=== PATIENT | female | born 1975 | race African-American/Black ===

== ENCOUNTER → 2016-09-20 | Outpatient (CLI) | payer OTHER ==
[~2016-09-20] VITALS: Ht 153.7 cm; Wt 78.5 kg
[~2016-09-20] MED LIST: AMOXICILLIN 8751 TAB PO; DOXYCYCLINE 10100 MG PO; ZYRTEC 10MG10 MG PO
[2016-09-20 14:40] VITALS: BP 116/66; PULSE 66
== END ==
LOC: LIGHT 09:08
DX: Z98.84 Bariatric surgery status (principal); Z68.33 Body mass index [BMI] 33.0-33.9, adult

== ENCOUNTER → 2016-10-18 | Outpatient (REF) | LOC: WSOH 14:41 | DX: Z02.89 Encounter for other administrative examinations (principal) ==

== ENCOUNTER → 2017-06-08 | Outpatient (CLI) | payer OTHER ==
[2017-06-08 16:27] LABS: BASO % 0.9 % (0.0-2.0); EOS # 0.1 (0.0-0.7); EOS % 1.6 % (0-4.0); GRAN # 2.5 (1.4-6.5); GRAN % 56.7 % (42.2-75.2); HEMATOCRIT 39.9 % (37.0-47.0); HEMOGLOBIN 12.8 g/dl (12.5-16.0); LYMPH # 1.5 (1.2-3.4); LYMPH % 33.7 % (20.0-51.0); MEAN CELL VOLUME 85 fl (80.0-100.0); MEAN CORPUSCULAR HEMOGLOBIN 27 pg (27.0-31.0); MEAN CORPUSCULAR HGB CONC 32 g/dl (33.0-37.0); MONO # 0.3 (0.1-0.6); MONO % 6.9 % (1.7-9.3); PLATELET COUNT 200 K/mm3 (130-400); REDCELL DISTRIBUTION WIDTH-CV 13.8 % (11.5-14.5)
[2017-06-08 16:37] LABS: BILIRUBIN,TOTAL 0.3 mg/dL (0.0-1.0); CALCIUM 8.7 mg/dL (8.4-10.2); CREATININE, serum 0.48 mg/dL (0.52-1.25); POTASSIUM 4.6 mmol/L (3.4-5.0); TOTAL PROTEIN 7.2 gm/dL (6.4-8.2)
== END ==
LOC: COL.LAB 15:25
PROVIDERS: Family Medicine
DX: D64.9 Anemia, unspecified (principal); R10.9 Unspecified abdominal pain

== ENCOUNTER 2017-06-27 07:13 | Emergency (ER) | payer OTHER ==
[~2017-06-27] VITALS: Ht 154.9 cm; Wt 85.9 kg
[2017-06-27 07:16] VITALS: BP 126/67; TEMP 97.9
[2017-06-27 08:29] VITALS: PULSE 64
== END 2017-06-27 08:30 | disposition home or self-care (01) ==
LOC: COL.ER 07:13
DX: S06.0X0A Concussion without loss of consciousness, initial encounter (principal); R40.2412 Glasgow coma scale score 13-15, at arrival to emergency department; W18.39XA Other fall on same level, initial encounter; W22.8XXA Striking against or struck by other objects, initial encounter; Y92.89 Other specified places as the place of occurrence of the external cause; Y99.0 Civilian activity done for income or pay

== ENCOUNTER → 2017-09-02 | Outpatient (CLI) | payer OTHER | LOC: COL.RAD 09:03 | DX: Z02.9 Encounter for administrative examinations, unspecified (principal); R76.11 Nonspecific reaction to tuberculin skin test without active tuberculosis ==

== ENCOUNTER → 2017-09-23 | Outpatient (CLI) | payer BC | LOC: MC.RAD 08:08 | DX: Z12.31 Encounter for screening mammogram for malignant neoplasm of breast (principal) ==

== ENCOUNTER → 2018-03-30 | Outpatient (CLI) | payer OTHER ==
[2018-03-30 19:26] LABS: ALBUMIN 4.2 gm/dL (3.5-5.0); BILIRUBIN,TOTAL 0.3 mg/dL (0.0-1.0); CALCIUM 8.7 mg/dL (8.4-10.2); CHOLESTEROL RISK RATIO 4.3; POTASSIUM 4.7 mmol/L (3.4-5.0); TOTAL PROTEIN 7.5 gm/dL (6.4-8.2)
[2018-03-30 19:53] LABS: THYROID STIMULATING HORMONE 1.79 uIU/mL (0.465-4.680)
[2018-03-30 20:06] LABS: CREATININE, serum 0.5 mg/dL (0.52-1.25)
[2018-03-31 09:25] LABS: BASO % 0.8 % (0.0-2.0); EOS # 0.1 (0.0-0.7); EOS % 1.6 % (0-4.0); GRAN # 1.9 (1.4-6.5); GRAN % 49.4 % (42.2-75.2); HEMATOCRIT 42.4 % (37.0-47.0); HEMOGLOBIN 13.2 g/dl (12.5-16.0); LYMPH # 1.5 (1.2-3.4); LYMPH % 39.1 % (20.0-51.0); MEAN CELL VOLUME 86 fl (80.0-100.0); MEAN CORPUSCULAR HEMOGLOBIN 27 pg (27.0-31.0); MEAN CORPUSCULAR HGB CONC 31 g/dl (33.0-37.0); MONO # 0.3 (0.1-0.6); MONO % 8.8 % (1.7-9.3); PLATELET COUNT 213 K/mm3 (130-400); RED BLOOD COUNT 4.96 M/mm3 (4.10-5.30); REDCELL DISTRIBUTION WIDTH-CV 14.5 % (11.5-14.5)
== END ==
LOC: ZCOL.LAB 17:03
PROVIDERS: Family Medicine
DX: Z13.220 Encounter for screening for lipoid disorders (principal); R10.9 Unspecified abdominal pain; R63.5 Abnormal weight gain

== ENCOUNTER → 2018-04-17 | Outpatient (CLI) | payer OTHER ==
[~2018-04-17] VITALS: Ht 154.9 cm; Wt 86.6 kg
[2018-04-17 15:43] VITALS: BP 134/74; PULSE 64
== END ==
LOC: LIGHT 14:20
DX: Z98.84 Bariatric surgery status (principal); Z68.33 Body mass index [BMI] 33.0-33.9, adult; Z71.3 Dietary counseling and surveillance
CPT/HCPCS: G0463

== ENCOUNTER → 2018-11-23 | Outpatient (CLI) | payer OTHER ==
[2018-11-23 23:51] LABS: FOLLICLE STIMULATING HORMONE 5.7 mIU/mL (()); LUTENIZING HORMONE 4.1 mIU/mL (())
== END ==
LOC: ZCOL.LAB 16:34
PROVIDERS: Family Medicine
DX: N95.1 Menopausal and female climacteric states (principal)

== ENCOUNTER → 2019-05-07 | Outpatient (CLI) | payer OTHER | LOC: COL.RAD 13:31 | DX: R76.11 Nonspecific reaction to tuberculin skin test without active tuberculosis (principal) ==

== ENCOUNTER → 2021-04-27 | Outpatient (CLI) | payer MEDICAID | LOC: COL.RAD 12:57 | DX: M75.111 Incomplete rotator cuff tear or rupture of right shoulder, not specified as traumatic (principal); M67.813 Other specified disorders of tendon, right shoulder | CPT/HCPCS: A9585; Q9967 ==

== ENCOUNTER 2022-05-28 07:30 | Day surgery (SDC) | payer MEDICAID ==
[~2022-05-28] VITALS: Ht 154.9 cm; Wt 91.8 kg
[2022-05-28 08:31] VITALS: BP 140/90; PULSE 82; TEMP 97.2
[2022-05-28] MEDS ORDERED: VICTOZA6 MG/ML SQ (08:33)
[2022-05-28] MEDS ORDERED: MOBIC15 MG PO (08:33)
[2022-05-28 10:00] VITALS: BP 113/78; PULSE 72; TEMP 97.1
[2022-05-28 10:15] VITALS: BP 120/81; PULSE 69
[2022-05-28 10:30] VITALS: BP 137/85; PULSE 76
--- NOTE | 2022-05-28 18:16 | NUR ---
8939 [id number] [id number] PT TO RECOVERY BAY FROM [facility]O [facility] S/P COLONOSCOPY WITH BIOPSY(S), STUPOROUS AND COOPERATIVE, ASSISTED TO CHAIR WITH 2-PERSON ASSIST. PLACED ON MONITOR , VSS ON RA. DENIES COMPLAINT. SPOUSE/RIDE HOME IN ROOM. RECEIVED REPORT AND ASSUMED CARE OF PT FROM ENDO RN. PROVIDED BEVERAGE AND SNACK AFTER MORE AWAKE, TOLERATED WELL. CONTINUES TO DENY COMPLAINT THRU OUT STAY, VSS ON RA. IN TO SPEAK WITH PT/FAMILY, DC PAPERWORK REVIEWED AND HANDED TO PT. ALL QUESTIONS/CONCERNS REVIEWED TO PT SATISFACTION. IV D/C'D WHEN A&O. TAKEN TO EXIT VIA WC, WITH ALL BELONGINGS AND PAPERWORK. STEADY GAIT TO PASSENGER SEAT OF POV, DRIVING HOME.
== END 2022-05-28 10:46 | disposition home or self-care (01) ==
LOC: SDCO 07:30
DX: R19.7 Diarrhea, unspecified (principal); E11.9 Type 2 diabetes mellitus without complications
CPT/HCPCS: J2704; J7120

== ENCOUNTER 2023-06-17 10:09 | Day surgery (SDC) | payer MEDICAID ==
[~2023-06-17] VITALS: Ht 154.9 cm; Wt 89.2 kg
[~2023-06-17 10:09] MED LIST changes: +LR 1,000 ML IV SCH; +MOBIC15 MG PO; +VICTOZA6 MG/ML SQ
[2023-06-17 11:07] VITALS: BP 139/86; PULSE 85; TEMP 97.3
[2023-06-17] MEDS ORDERED: fentaNYL 50 MCG/ML 2 ML VIAL ONE (11:26)
[2023-06-17] MEDS ORDERED: NS 10 ML IV ONE (11:27)
[2023-06-17] MEDS ORDERED: dexAMETHasone 10 MG/ML VIAL ONE (11:27)
[2023-06-17] MEDS ORDERED: Lidocaine PF 2% (20 MG/ML) 5 ML VIAL ONE (11:27)
[2023-06-17] MEDS ORDERED: Glycopyrrolate 0.2 MG/ML 1 ML VIAL ONE (11:27)
[2023-06-17] MEDS ORDERED: Ketorolac 30 MG/ML VIAL ONE (11:27)
[2023-06-17] MEDS ORDERED: Ondansetron 4 MG/2 ML VIAL ONE (11:27)
[2023-06-17] MEDS ORDERED: Rocuronium 50 MG/5 ML Multi-Dose VIAL ONE (11:30)
[2023-06-17] MEDS ORDERED: Ondansetron 4 MG/2 ML VIAL IV PRN ×2 (11:30→14:00)
[2023-06-17] MEDS ORDERED: Meperidine 50 MG/ML 1 ML VIAL IV PRN (11:30)
[2023-06-17] MEDS ORDERED: HYDROmorphone 2 MG/1 ML VIAL IV PRN (11:30)
[2023-06-17] MEDS ORDERED: Indocyanine Green 12.5 MG in Water For Injection,Sterile 2.5 ML IV SCH (11:30)
[2023-06-17] MEDS ORDERED: Morphine 4 MG/ML VIAL IV PRN (11:30)
[2023-06-17] MEDS ORDERED: LR 1,000 ML IV ONE (13:13)
[2023-06-17] MEDS ORDERED: NORCO 325 MG-51 TAB PO (13:48)
[2023-06-17 14:40] VITALS: BP 129/74; PULSE 72; TEMP 97.5
--- NOTE | 2023-06-17 14:40 | NUR ---
The patient arrived back to [facility] from the recovery room at this time. The patient appears alert and oriented and reports minimal pain at her incision sites at this time. The patient has 4 bandaids to her abdomen that appear clean, dry and intact. The patient's post operative vital signs were started at this time. The patient's is at her bedside. The patient agrees to try some vailla pudding and diet soda at this time. Call light is within reach. Denies any further needs.
[2023-06-17 14:55] VITALS: BP 120/73; PULSE 75
--- NOTE | 2023-06-17 14:55 | NUR ---
The patient finished her pudding and appeared to tolerate it well. The patient was given a PRN dose of [place] one tab to continue her pain relief.
[2023-06-17 15:10] VITALS: BP 119/70; PULSE 62
--- NOTE | 2023-06-17 15:10 | NUR ---
The patient reports feeling dizzy at this time. The patient was given a cool washcloth for the back of her neck and the lights in the room were turned down. The patient's vital signs all look stable at this time.
[2023-06-17 15:26] VITALS: BP 125/70; PULSE 63
[2023-06-17 15:45] VITALS: BP 123/65; PULSE 62
--- NOTE | 2023-06-17 16:00 | NUR ---
Discharge instructions were reviewed with the patient and her at this time. They both verbalized understanding and have no questions for the nurse at this time. The patient's IV to her left hand was removed and a pressure dressing was applied to the site. The nurse instructed the patient to get dressed and notify the staff when she is ready to be escorted out.
--- NOTE | 2023-06-17 16:20 | NUR ---
The patient was escorted out via wheelchair to a private vehicle by [facility]. The patient's belongings and discharge paperwork were sent with her. The patient's is present to drive her home.
== END 2023-06-17 16:20 | disposition home or self-care (01) ==
LOC: SDCO 10:09
DX: K80.10 Calculus of gallbladder with chronic cholecystitis without obstruction (principal); E66.9 Obesity, unspecified; Z68.37 Body mass index [BMI] 37.0-37.9, adult; Z98.84 Bariatric surgery status
CPT/HCPCS: J0690; J1100; J1170; J1885; J2405; J2704; J3010; J7120